=== PATIENT | male | born 1950 | race Caucasian/White ===

== ENCOUNTER → 2016-09-18 | Outpatient (CLI) | payer MEDICARE ==
[2013-12-12 12:15] VITALS: BP 154/87
[~2016-09-18] MED LIST: ASPI325T4 PO; ATOR20TA PO; DOXY-103 PO; LISI10TA2 PO; METO25TA9 PO; MULT-460 PO; NITR0.4T6 SL; OMEG-33 PO; OXYC5TAB PO; PROAIR HFA8.5 GM INH; UBID50TA PO
[2016-09-18 14:00] LABS: BASO # 0.1 x10^3/uL (0.0-0.2); BASO % 1 % (0-3); EOS % 2 % (0-3); LYMPH # 3.2 x10^3/uL (1.0-4.8); LYMPH % 32 % (24-48); MEAN CORPUSCULAR HEMOGLOBIN 32 pg (25-35); MEAN CORPUSCULAR HGB CONC 34 g/dL (31-37); MEAN CORPUSCULAR VOLUME 95 fL (79-100); MONO % 8 % (0-9); NEUT % 57 % (31-73); PLATELET COUNT 262 x10^3/uL (140-400); RED BLOOD COUNT 4.95 x10^6/uL (4.30-5.70); WHITE BLOOD COUNT 10.2 x10^3/uL (4.0-11.0)
[2016-09-18 14:19] LABS: CALCIUM 9.3 mg/dL (8.5-10.1); CREATININE 1.2 mg/dL (0.7-1.3); GFR 60.2; POTASSIUM 4.3 mmol/L (3.5-5.1)
[2016-09-19 06:21] LABS: PTH INTACT 59 pg/mL (15-65)
== END | disposition home or self-care (01) ==
LOC: LAB 13:39
PROVIDERS: ATTEND Internal Medicine Nephrology
DX: N18.3 Chronic kidney disease, stage 3 (moderate) (principal); N12 Tubulo-interstitial nephritis, not specified as acute or chronic; I10 Essential (primary) hypertension; N13.30 Unspecified hydronephrosis
CPT/HCPCS: 36415; 80069; 83970; 85027

== ENCOUNTER → 2017-02-27 | Outpatient (CLI) | payer MEDICARE ==
[2013-12-12 12:15] VITALS: BP 154/87
[~2017-02-27] MED LIST changes: -ASPI325T4 PO; +ASPI325T8 PO; -DOXY-103 PO; +DOXY100T10 PO; +NITR0.4T22 SL; -NITR0.4T6 SL
--- NOTE | 2017-02-27 11:01 | RAD ---
CT chest without IV contrast Indication: 66-year-old male for follow-up of lung nodule. Technique: CT chest without IV contrast with multi planar reformats. Comparison: Previous CT from 05/16/2016. Findings: Neck base is clear. No axillary, mediastinal or hilar adenopathy. Heart is normal in size. Coronary artery calcifications noted. No pericardial or pleural effusion. CABG changes noted. Lung nodules as follows: -Stable left lower lobe nodule measuring 8 mm (series 3 image 216). -Stable right lower lobe nodule measuring 5 mm (series 3 image 114). -Stable 2 mm nodule in the inferior aspect of the right upper lobe (series 3 image 142). -Stable triangular opacity measuring 3 mm in the right middle lobe (series 3 image 181). The noncontrast appearance of the visualized liver, spleen, pancreas, adrenals and kidneys is within normal limits. No radiopaque gallstones. Stable 2.6 x 6.2 cm right anterolateral lower chest wall intramuscular lipoma. Stable 1 cm superficial lesion within the right lateral chest wall likely sebaceous cyst. No suspicious bony lesion. Impression: Stable pulmonary nodules, the largest in the left lower lobe measuring 8 mm. Follow-up study in 6-12 months recommended. PQRS Compliance Statement: One or more of the following individualized dose reduction techniques were utilized for this examination: 1. Automated exposure control 2. Adjustment of the mA and/or kV according to patient size 3. Use of iterative reconstruction technique
== END | disposition home or self-care (01) ==
LOC: CT 09:55
PROVIDERS: ATTEND Internal Medicine Pulmonary Disease
DX: R91.8 Other nonspecific abnormal finding of lung field (principal); R91.1 Solitary pulmonary nodule
CPT/HCPCS: 71250

== ENCOUNTER → 2017-03-19 | Outpatient (CLI) | payer MEDICARE ==
[2013-12-12 12:15] VITALS: BP 154/87
[~2017-03-19] MED LIST changes: +METO-239 PO; -METO25TA9 PO; -OXYC5TAB PO; +OXYC5TAB95 PO
[2017-03-19 14:19] LABS: ALBUMIN 3.8 g/dL (3.4-5.0); CALCIUM 8.8 mg/dL (8.5-10.1); CREATININE 1.2 mg/dL (0.7-1.3); GFR 60.2; PHOSPHORUS 3.2 mg/dL (2.6-4.7); POTASSIUM 4.3 mmol/L (3.5-5.1)
== END | disposition home or self-care (01) ==
LOC: LAB 13:48
PROVIDERS: ATTEND Internal Medicine Nephrology
DX: I12.9 Hypertensive chronic kidney disease with stage 1 through stage 4 chronic kidney disease, or unspecified chronic kidney disease (principal); N18.2 Chronic kidney disease, stage 2 (mild); N12 Tubulo-interstitial nephritis, not specified as acute or chronic; Z68.29 Body mass index [BMI] 29.0-29.9, adult
CPT/HCPCS: 36415; 80069

== ENCOUNTER → 2017-06-11 | Outpatient (CLI) | payer MEDICARE ==
[2013-12-12 12:15] VITALS: BP 154/87
[~2017-06-11] MED LIST changes: +IOHEXOL 300 MG/ML 100ML VIAL. IV ONE
--- NOTE | 2017-06-11 14:49 | RAD ---
Examination: CT angiogram of the abdomen pelvis History: History of abdominal aortic aneurysm Comparison: 03/29/2016 Technique: Axial CT angiographic images of the abdomen pelvis were performed with IV contrast. Coronal and sagittal 3-D MIP reformats are performed. 3-D volumetric reformats of the abdomen that was performed. PQRS Compliance Statement: One or more of the following individualized dose reduction techniques were utilized for this examination: 1. Automated exposure control 2. Adjustment of the mA and/or kV according to patient size 3. Use of iterative reconstruction technique. Findings: There is a 6 mm nodule identified in the left lower lobe of the lung similar to prior exam. No evidence of free air identified in the abdomen. The visualized liver, spleen, adrenals grossly appears unremarkable , the gallbladder is mildly distended. The stomach is minimally distended. The visualized pancreas grossly appears unremarkable. The small bowel is nondilated. The appendix is normal. Feces and gas noted throughout the colon. Multiple colon diverticula identified. Urinary bladder is moderately distended. Moderate aortic atherosclerosis. Infrarenal abdominal aortic aneurysm is identified measuring 3.1 cm in AP dimension and 3.4 cm in transverse dimension. The visualized celiac artery, superior mesenteric artery, inferior mesenteric artery are patent. The bilateral renal arteries are patent. The bilateral kidneys enhance symmetrically. Mild prominent left extrarenal pelvis or a chronic low-grade UPJ obstruction similar to prior exam. Moderate atherosclerosis of the bilateral external and internal iliac arteries are identified. Urinary bladder is mildly distended. A lipoma is identified in the right chest wall similar to prior exam. Mild degenerative changes lumbar spine. Impression: Focal abdominal aortic aneurysm measuring 3.1 x 3.4 cm in the infrarenal abdominal aorta, similar to prior exam.
== END | disposition home or self-care (01) ==
LOC: CT 14:11
PROVIDERS: ATTEND Internal Medicine Cardiovascular Disease
DX: I71.4 Abdominal aortic aneurysm, without rupture (principal); R91.1 Solitary pulmonary nodule; K82.8 Other specified diseases of gallbladder; K31.89 Other diseases of stomach and duodenum; N32.89 Other specified disorders of bladder; I70.0 Atherosclerosis of aorta; D17.1 Benign lipomatous neoplasm of skin and subcutaneous tissue of trunk
CPT/HCPCS: 74174; Q9967

== ENCOUNTER → 2017-06-11 | Outpatient (CLI) | payer MEDICARE ==
[2013-12-12 12:15] VITALS: BP 154/87
[~2017-06-11] MED LIST changes: -IOHEXOL 300 MG/ML 100ML VIAL. IV ONE
[2017-06-11 13:20] LABS: BASO # 0.1 x10^3/uL (0.0-0.2); BASO % 1 % (0-3); EOS % 4 % (0-3); HEMATOCRIT 46.5 % (39.0-53.0); HEMOGLOBIN 15.8 g/dL (13.0-17.5); LYMPH % 34 % (24-48); MEAN CORPUSCULAR HEMOGLOBIN 33 pg (25-35); MEAN CORPUSCULAR HGB CONC 34 g/dL (31-37); MEAN CORPUSCULAR VOLUME 97 fL (79-100); MONO % 9 % (0-9); NEUT % 53 % (31-73); PLATELET COUNT 300 x10^3/uL (140-400); RED BLOOD COUNT 4.81 x10^6/uL (4.30-5.70); RED CELL DISTRIBUTION WIDTH 14.1 % (11.5-14.5); WHITE BLOOD COUNT 8.8 x10^3/uL (4.0-11.0)
[2017-06-11 13:32] LABS: ALBUMIN 4.1 g/dL (3.4-5.0); ALBUMIN/GLOBULIN RATIO 1.1 (1.0-1.7); CALCIUM 9.2 mg/dL (8.5-10.1); CREATININE 1.2 mg/dL (0.7-1.3); TOTAL BILIRUBIN 0.5 mg/dL (0.2-1.0); TOTAL PROTEIN 7.9 g/dL (6.4-8.2)
[2017-06-11 13:34] LABS: CHOLESTEROL/HDL RATIO 2.6
== END | disposition home or self-care (01) ==
LOC: LAB 12:42
PROVIDERS: ATTEND Family Medicine
DX: Z12.5 Encounter for screening for malignant neoplasm of prostate (principal); I10 Essential (primary) hypertension; E78.5 Hyperlipidemia, unspecified; I71.4 Abdominal aortic aneurysm, without rupture
CPT/HCPCS: 36415; 80053; 80061; 85025; G0103

== ENCOUNTER → 2018-02-15 | Outpatient (CLI) | payer MEDICARE | END | disposition home or self-care (01) | LOC: CT 10:20 | DX: I25.10 Atherosclerotic heart disease of native coronary artery without angina pectoris (principal); I25.2 Old myocardial infarction; I13.0 Hypertensive heart and chronic kidney disease with heart failure and stage 1 through stage 4 chronic kidney disease, or unspecified chronic kidney disease; I50.9 Heart failure, unspecified; N18.3 Chronic kidney disease, stage 3 (moderate); R91.8 Other nonspecific abnormal finding of lung field; Z68.29 Body mass index [BMI] 29.0-29.9, adult | CPT/HCPCS: 71250 ==

== ENCOUNTER → 2018-07-18 | Outpatient (CLI) | payer MEDICARE ==
[2013-12-12 12:15] VITALS: BP 154/87
[~2018-07-18] MED LIST changes: +ALBU2.5V8 INH; +OXYC5TAB4 PO; -OXYC5TAB95 PO; -PROAIR HFA8.5 GM INH
[2018-07-18 13:58] LABS: ALBUMIN 3.6 g/dL (3.4-5.0); CALCIUM 9.3 mg/dL (8.5-10.1); CREATININE 1.2 mg/dL (0.7-1.3); GFR 59.9; PHOSPHORUS 3.6 mg/dL (2.6-4.7); POTASSIUM 4.5 mmol/L (3.5-5.1)
== END | disposition home or self-care (01) ==
LOC: LAB 13:09
PROVIDERS: ATTEND Internal Medicine Nephrology
DX: I12.9 Hypertensive chronic kidney disease with stage 1 through stage 4 chronic kidney disease, or unspecified chronic kidney disease (principal); N18.2 Chronic kidney disease, stage 2 (mild); N12 Tubulo-interstitial nephritis, not specified as acute or chronic; Z68.29 Body mass index [BMI] 29.0-29.9, adult
CPT/HCPCS: 36415; 80069

== ENCOUNTER 2019-01-31 20:40 | Emergency (ER) | payer MEDICARE ==
[~2019-01-31] VITALS: Ht 170.2 cm; Wt 77.1 kg
[2019-01-31 20:45] VITALS: BP 138/90
--- NOTE | 2019-01-31 20:59 | PHYS DOC ---
Past Medical History Past Medical History: Other Additional Past Medical Histor: DOESN[place]T GO [place] [facility] [place] Past Surgical History: No Surgical History Alcohol Use: Heavy Drug Use: None Adult General Chief Complaint Chief Complaint: MECHANICAL FALL HPI HPI Patient is a 68 year old male who presents after he fell this happened prior to arrival. The patient denies loss of consciousness, patient states he tripped on the carpet and hit his head on the doorknob. The patient is a laceration to the occipital portion of her head. States he takes 6-325 mg aspirin every day for pain control. States he has had several cocktails this evening prior to falling. Review of Systems Review of Systems Constitutional: Denies fever or chills [] Eyes: Denies change in visual acuity, redness, or eye pain [] HENT: Denies nasal congestion or sore throat [] Respiratory: Denies cough or shortness of breath [] Cardiovascular: No additional information not addressed in HPI [] GI: Denies abdominal pain, nausea, vomiting, bloody stools or diarrhea [] : Denies dysuria or hematuria [] Musculoskeletal: Denies back pain or joint pain [] Integument: Reports laceration to scalp. Neurologic: Reports headache, denies focal weakness or sensory changes [] Endocrine: Denies polyuria or polydipsia [] Complete systems were reviewed and found to be within normal limits, except as documented in this note. Current Medications Current Medications Current Medications Medications (Trade) Dose Ordered Sig/[facility] Start Time Stop Time Status Last Admin Dose Admin Lidocaine HCl (Lidocaine 1% 20ml Vial) 20 ml 1X ONCE 01/31/19 21:00 01/31/19 21:01 DC 01/31/19 21:26 20 ML Allergies Allergies Allergies Coded Allergies Type Severity Reaction Last Updated Verified Penicillins Allergy Severe Swelling 11/10/13 Yes Sulfa (Sulfonamide Antibiotics) Allergy Severe THROAT SWELLING 11/10/13 Yes Physical Exam Physical Exam Constitutional: Well developed, well nourished, no acute distress, non-toxic appearance. [] HENT: Normocephalic, atraumatic, bilateral external ears normal, oropharynx moist, no oral exudates, nose normal. [] Eyes: PERRLA, EOMI, conjunctiva normal, no discharge. [] Neck: Normal range of motion, no tenderness, supple, no stridor. [] Cardiovascular:Heart rate regular rhythm, no murmur [] Lungs & Thorax: Bilateral breath sounds clear to auscultation [] Abdomen: Bowel sounds normal, soft, no tenderness, no masses, no pulsatile masses. [] Skin: Warm, dry, no erythema, laceration to occipital portion of head 2.5 cm. Back: No tenderness, no CVA tenderness. [] Extremities: No tenderness, no cyanosis, no clubbing, ROM intact, no edema. [] Neurologic: Alert and oriented X 3, normal motor function, normal sensory function, no focal deficits noted. [] Psychologic: Affect normal, judgement normal, mood normal. [] Current Patient Data Vital Signs Vital Signs Date Time Temp Pulse Resp B/P (MAP) Pulse Ox O2 Delivery O2 Flow Rate FiO2 01/31/19 20:45 98.6 60 20 138/90 (106) 95 Room Air 98.6 EKG EKG [] Radiology/Procedures Radiology/Procedures Indication: Head laceration Procedure: The patient was placed in the appropriate position and anesthesia around the lidocaine 1%. The area was then debrided with 120 mL of saline. The laceration was closed with 6 will. The wound area was then dressed with wound covering. Total repaired wound length: 3 cm. The patient tolerated the procedure [TOLERATED]. Complications: None []PATIENT: SAMANTHA GORMAN LACCOUNT: [id number]#: [id number] : 1950 LOCATION: ER AGE: 68 SEX: M EXAM STATUS: REG ER ORD. PHYSICIAN: FRITZ MUIR APRN REASON: fall, POSTERIOR HEAD BLEEDING. PROCEDURE: CT HEAD AND CERVICAL SPINE WO INDICATION: Trauma COMPARISON: None. TECHNIQUE: Axial CT images obtained through the head and cervical spine. One or more of the following individualized dose reduction techniques were utilized for this examination: 1. Automated exposure control; 2. Adjustment of the mA and/or kV according to patient size; 3. Use of iterative reconstruction technique. FINDINGS: Head: No midline shift. Suprasellar cistern is not effaced. Scattered foci of low density of the white matter. Right-sided scalp cephalohematoma, small. No definite acute intracranial hemorrhage. Small amount of fluid in the right maxillary sinus which is small in size. Cervical spine: Degenerative changes throughout the cervical spine with osteophyte formation at the vertebral body endplates as well as uncovertebral and facet hypertrophy with multilevel central canal and neural foraminal stenosis. For example there is a large disc osteophyte complex at C4-5 with resultant narrowing of the central canal which appears severe in nature. Grade 1 anterolisthesis of C7 on T1. No definite acute fracture. Cystic changes at lung apices which can be seen with emphysema. IMPRESSION: 1. No acute intracranial hemorrhage. 2. Scattered low density of white matter. Nonspecific but can be seen with chronic small vessel ischemic disease. 3. Severe degenerative changes of the cervical spine with multilevel central canal neural foraminal stenosis without a definite acute fracture. Electronically signed by: Rahat Tucker MD (01/31/2019 9:53 PM) [facility] DICTATED and SIGNED BY: RAHAT TUCKER MD DATE: 01/31/192152 Course & Med Decision Making Course & Med Decision Making Pertinent Labs and Imaging studies reviewed. (See chart for details) Will get CT of head and neck, patient is already in C-collar. Will also staple laceration. Cleared c-collar as patient was having no pain with head movement and no c-spine tenderness. Patient is clinically sober, and can walk steadily and talk (23:26). Stapled laceration. Dragon Disclaimer Dragon Disclaimer This electronic medical record was generated, in whole or in part, using a voice recognition dictation system. Departure Departure Impression: Primary Impression: Fall Additional Impression: Laceration Disposition: 01 HOME, SELF-CARE Condition: STABLE Referrals: JUAN R MOORE MD (PCP) Patient Instructions: Laceration Care, Adult Additional Instructions: Thank you for visiting [facility]. We appreciate you trusting us with your care. If any additional problems come up don't hesitate to return to visit us. Please follow up with your primary care provider so they can plan additional care if needed and know about the problem that you had. If symptoms worsen come back to the Emergency Department. Any concerning symptoms that start such as chest pain, shortness of air, weakness or numbness on one side of the body, running high fevers or any other concerning symptoms return to the ER. Please have will removed in 5-[address] Neosporin on wound. Keep clean. Problem Qualifiers Primary Impression: Fall Encounter type: initial encounter Qualified Codes: W19.XXXA - Unspecified fall, initial encounter FRITZ MUIR APRN Jan 31, 2019 20:59
[2019-01-31] MEDS ORDERED: LIDOCAINE 1% Multi-Dose 20 ML VIAL. INJ ONE (21:00)
--- NOTE | 2019-01-31 21:56 | RAD ---
INDICATION: Trauma COMPARISON: None. TECHNIQUE: Axial CT images obtained through the head and cervical spine. One or more of the following individualized dose reduction techniques were utilized for this examination: 1. Automated exposure control; 2. Adjustment of the mA and/or kV according to patient size; 3. Use of iterative reconstruction technique. FINDINGS: Head: No midline shift. Suprasellar cistern is not effaced. Scattered foci of low density of the white matter. Right-sided scalp cephalohematoma, small. No definite acute intracranial hemorrhage. Small amount of fluid in the right maxillary sinus which is small in size. Cervical spine: Degenerative changes throughout the cervical spine with osteophyte formation at the vertebral body endplates as well as uncovertebral and facet hypertrophy with multilevel central canal and neural foraminal stenosis. For example there is a large disc osteophyte complex at C4-5 with resultant narrowing of the central canal which appears severe in nature. Grade 1 anterolisthesis of C7 on T1. No definite acute fracture. Cystic changes at lung apices which can be seen with emphysema. IMPRESSION: 1. No acute intracranial hemorrhage. 2. Scattered low density of white matter. Nonspecific but can be seen with chronic small vessel ischemic disease. 3. Severe degenerative changes of the cervical spine with multilevel central canal neural foraminal stenosis without a definite acute fracture. Electronically signed by: Bebeto Valdez MD (01/31/2019 9:53 PM) [facility]
[2019-01-31] MEDS ORDERED: NEOMY/BACITR/POLYMYXIN OINT PACKET. TP ONE ×2 (23:35→23:45)
== END 2019-01-31 23:35 | disposition home or self-care (01) ==
LOC: ER 20:40
DX: S01.01XA Laceration without foreign body of scalp, initial encounter (principal); R51 Headache; M54.2 Cervicalgia; Z88.0 Allergy status to penicillin; Z88.2 Allergy status to sulfonamides; W01.118A Fall on same level from slipping, tripping and stumbling with subsequent striking against other sharp object, initial encounter; Y93.89 Activity, other specified; Y92.89 Other specified places as the place of occurrence of the external cause; Y99.8 Other external cause status
CPT/HCPCS: 12002; 70450; 72125; 99284-25

== ENCOUNTER → 2019-04-04 | Outpatient (CLI) | payer MEDICARE ==
[2013-12-12 12:15] VITALS: BP 154/87
[~2019-04-04] MED LIST changes: -DOXY100T10 PO; +DOXY100T27 PO
--- NOTE | 2019-04-04 15:34 | KCIC ---
EXAM: Right great toe, 3 views. HISTORY: Fall. COMPARISON: None. FINDINGS: 3 views of the right great toe are obtained. There is a nondisplaced intra-articular fracture of the mid and distal first proximal phalanx. There is minimal spurring involving the base of the first proximal phalanx. IMPRESSION: Nondisplaced intra-articular fracture of the mid to distal right first proximal phalanx. Electronically signed by: Jackelyn Heredia MD (04/04/2019 3:32 PM) [place] [id number]
--- NOTE | 2019-04-04 16:49 | KCIC ---
EXAM: Chest, 2 views. HISTORY: Dyspnea on exertion. Smoking history. COMPARISON: 02/15/2018 FINDINGS: 2 views of the chest are obtained. There is no infiltrate, pleural effusion or pneumothorax. The heart is normal in size. There is evidence of coronary artery bypass grafting. There is a small nodular opacity overlying the lateral left lower lobe, likely corresponding with a nodule in this location demonstrated on the prior CT dated 02/15/2018. IMPRESSION: 1. No acute pulmonary finding. 2. Subcentimeter left lower lobe pulmonary nodule, not appreciably changed compared to the prior CT when allowing for differences in imaging modality. Electronically signed by: Jackelyn Heredia MD (04/04/2019 4:46 PM) [id number]
== END | disposition home or self-care (01) ==
LOC: KCIC 09:55
PROVIDERS: ATTEND Family Medicine
DX: S92.414A Nondisplaced fracture of proximal phalanx of right great toe, initial encounter for closed fracture (principal); M79.674 Pain in right toe(s); R06.00 Dyspnea, unspecified; Z95.1 Presence of aortocoronary bypass graft; R91.1 Solitary pulmonary nodule; Z87.891 Personal history of nicotine dependence; W18.31XA Fall on same level due to stepping on an object, initial encounter; Y93.89 Activity, other specified; Y92.89 Other specified places as the place of occurrence of the external cause; Y99.8 Other external cause status
CPT/HCPCS: 71046; 73660

== ENCOUNTER → 2019-08-20 | Outpatient (CLI) | payer MEDICARE ==
[2013-12-12 12:15] VITALS: BP 154/87
--- NOTE | 2019-08-20 14:15 | KCIC ---
SCAN OF ABDOMINAL AORTA History: Abdominal aortic aneurysm Comparison: June 11, 2017 CT exam abdomen pelvis Findings: Multiple sonographic images of the abdomen are submitted. There is diffuse plaque of the abdominal aorta and iliac arteries. Maximal caliber of the proximal abdominal aorta was 3 cm and 2.9 cm at the mid segment. Distal abdominal aorta is dilated in maximal dimension up to 3.9 cm, somewhat greater as previous maximal dimension about 3.5 cc. Maximal distal abdominal aortic peak systolic velocity 60 cm/s. Impression: 1. There is distal abdominal aortic aneurysm up to 3.9 cm maximal axial dimension, somewhat increased compared with 2017 CTA exam. There is diffuse scattered plaque. Electronically signed by: Paul Stout MD (08/20/2019 2:12 PM) [id number]
== END | disposition home or self-care (01) ==
LOC: KCIC US 09:34
PROVIDERS: ATTEND Family Medicine
DX: I71.4 Abdominal aortic aneurysm, without rupture (principal); I70.0 Atherosclerosis of aorta
CPT/HCPCS: 76770

== ENCOUNTER → 2020-03-25 | Outpatient (CLI) | payer MEDICARE ==
[2013-12-12 12:15] VITALS: BP 154/87
--- NOTE | 2020-03-25 10:18 | RAD ---
Examination: Complete abdominal ultrasound INDICATION: Vertigo: Transabdominal pain. COMPARISON: CT angiogram abdomen and pelvis of 06/11/2017. TECHNIQUE: Grayscale and, color and spectral Doppler imaging of the abdomen was performed. FINDINGS: Liver measures 14.7 cm in length and is unremarkable with no masses or nodular contour. Echogenicity is unremarkable. The gallbladder is sonographically unremarkable with wall thickness of 1.7 mm No stones, sludge or masses. There is no intra or extrahepatic biliary dilation with the common bile duct measuring 2 mm at the josiah hepatis. Spleen is poorly visualized. It measures approximately 8 cm. Right kidney measures 9.9 x 5.1 x 4.5 cm and is unremarkable. Left kidney measures 9.3 x 4.6 x 5.4 cm and is also unremarkable. No hydronephrosis, shadowing stones or perinephric fluid identified in either kidney. Patent, normal directional flow in the main portal vein. Visualized IVC is unremarkable. Abdominal aorta is atherosclerotic calcifications and is ectatic to 3.8 cm. This is evaluated in greater detail on same-day abdominal aortic ultrasound. Please see that report for additional details. IMPRESSION: No specific cause for right upper quadrant abdominal pain is identified. In particular, the liver and gallbladder are unremarkable and there is no biliary dilation. Examination: Abdominal aorta ultrasound INDICATION: Abdominal pain, abdominal aortic aneurysm COMPARISON: 06/11/2017 CT abdomen with IV contrast. TECHNIQUE: Grayscale, color and spectral Doppler imaging of the abdominal aorta and common iliac arteries was performed FINDINGS: Proximal abdominal aorta is obscured by bowel gas. Mid abdominal aorta shows atherosclerotic calcifications along its length. Measures 2.3 cm AP diameter in the longitudinal projection. Peak systolic velocity is 70 cm/s. Resistive index of 0.8. Distal abdominal aorta is dilated to 3.4 cm AP diameter, 3.8 cm transverse diameter. Peak systolic velocity of 53 cm/s. Resistive index of 0.71. Calcified plaque is present in the wall. No evidence of dissection identified. Right common iliac artery measures 1.0 cm transverse diameter, 1.1 cm AP diameter. It shows a peak systolic velocity of 141 cm/s, resistive index of 0.86. Left common iliac artery measures 1.0 x 0.9 cm AP by transverse. It shows a peak systolic velocity of 163 cm/s. Resistive index of 0.87. IMPRESSION: Infrarenal abdominal aortic aneurysm measuring 3.4 x 3.8 cm (AP by transverse) showing no evidence of leak , rupture or dissection. Proximal abdominal aorta obscured by bowel gas. Electronically signed by: Annabelle Nicole MD (03/25/2020 10:15 AM) [id number]
== END | disposition home or self-care (01) ==
LOC: US 06:22
PROVIDERS: ATTEND Nurse Practitioner Gerontology
DX: I71.4 Abdominal aortic aneurysm, without rupture (principal); I70.0 Atherosclerosis of aorta
CPT/HCPCS: 76700; 76770

== ENCOUNTER → 2020-04-05 | Outpatient (CLI) | payer MEDICARE ==
[2013-12-12 12:15] VITALS: BP 154/87
[~2020-04-05] MED LIST changes: +CONTRAST GIVEN. MC PRN; +IOHEXOL 240 MG/ML 50ML VIAL. PO ONE; +IOHEXOL 300 MG/ML 100ML VIAL. IV ONE
--- NOTE | 2020-04-05 15:07 | KCIC ---
CT abdomen and pelvis with contrast HISTORY: Abdominal pain 1 month TECHNIQUE: Computed tomographic imaging of the abdomen and pelvis was performed following the uneventful intravenous demonstration of 100 cc Omnipaque 300. COMPARISON: June 11, 2017 PQRS Compliance Statement: One or more of the following individualized dose reduction techniques were utilized for this examination: 1. Automated exposure control 2. Adjustment of the mA and/or kV according to patient size 3. Use of iterative reconstruction technique FINDINGS: Bases are clear. Liver unremarkable Gallbladder negative Adrenal glands negative Kidneys negative Spleen negative Fatty infiltration of the pancreas. Marked stool retention is present in the colon. Normal-appearing appendix. Abdominal aortic aneurysm measuring 37 x 36 mm. Extensive atherosclerotic calcifications are present. Diverticulosis without acute diverticulitis evident. L3-4 bulging disc with moderate central stenosis. Seminal vesicles and prostate unremarkable Bladder unremarkable IMPRESSION: Marked stool retention, diverticulosis no acute diverticulitis L4-5 disc bulge with moderate central stenosis Electronically signed by: Isidro Bustillo MD (04/05/2020 3:04 PM) [id number]
== END | disposition home or self-care (01) ==
LOC: KCIC CT 08:59
PROVIDERS: ATTEND Family Medicine
DX: K57.30 Diverticulosis of large intestine without perforation or abscess without bleeding (principal); R63.4 Abnormal weight loss; K86.89 Other specified diseases of pancreas; M48.061 Spinal stenosis, lumbar region without neurogenic claudication
CPT/HCPCS: 74177; Q9966; Q9967

== ENCOUNTER 2020-07-01 09:55 | Emergency (ER) | payer MEDICARE ==
[~2020-07-01] VITALS: Ht 172.7 cm; Wt 73.6 kg
[~2020-07-01 09:55] MED LIST changes: -CONTRAST GIVEN. MC PRN; -IOHEXOL 240 MG/ML 50ML VIAL. PO ONE; -IOHEXOL 300 MG/ML 100ML VIAL. IV ONE
--- NOTE | 2020-07-01 11:04 | RAD ---
XR CHEST 2V History: Reason: FALL, LEFT-SIDED RIB PAIN LOWER RIB PAIN Comparison: Two-view chest April 04, 2019. Findings: There are CABG changes. Cardiac size is normal. Pulmonary vasculature is normal. The lungs are clear. No pleural effusion or pneumothorax is seen. There is acute traumatic minimally displaced left lateral ninth rib fracture. No other adjacent rib f ractures are definitely seen but nondisplaced or subtle rib fractures could be obscured due to bony o verlap. IMPRESSION: 1. No acute cardiopulmonary process. 2. Acute traumatic minimally displaced left lateral ninth rib fracture. Electronically signed by: Jerry Hubbard MD (07/01/2020 11:01 AM) [id number]
[2020-07-01 11:30] VITALS: BP 153/65
[2020-07-01] MEDS ORDERED: LIDOCAINE (700MG/PATCH) PATCH. TD ONE (11:30)
[2020-07-01] MEDS ORDERED: HYDR-3164 PO (11:42)
--- NOTE | 2020-07-01 11:43 | ED.ADGEN ---
Past Medical History Past Medical History: High Cholesterol, Hypertension, Other Additional Past Medical Histor: AAA Past Surgical History: Coronary Bypass Surgery Smoking Status: Current Every Day Smoker Alcohol Use: Heavy Additional Information: '4X A WEEK' Drug Use: None General Adult EDM: Chief Complaint: MECHANICAL FALL HPI: HPI: Patient is a 70 year old male coming in with left-sided rib pain after a fall yesterday. Says he had fallen and caught himself on his bed frame. Takes tramadol. Chronic pain but has taken 2 today without improvement. Denies any recent illness, fevers, cough, chest pain, vomiting or diarrhea. Review of Systems: Review of Systems: Negative other than HPI Current Medications: Current Medications Medications (Trade) Dose Ordered Sig/[facility]ana Start Time Stop Time Status Last Admin Dose Admin Lidocaine (Lidoderm) 1 patch 1X ONCE 07/01/20 11:30 07/01/20 11:31 DC 07/01/20 11:30 1 PATCH Allergies: Allergies: Allergies Coded Allergies Type Severity Reaction Last Updated Verified Penicillins Allergy Severe Swelling 11/10/13 Yes Sulfa (Sulfonamide Antibiotics) Allergy Severe THROAT SWELLING 11/10/13 Yes Physical Exam: PE: Constitutional: Well developed, well nourished, no acute distress, non-toxic appearance. [] HENT: Normocephalic, atraumatic, bilateral external ears normal, oropharynx moist, no oral exudates, nose normal. [] Eyes: PERRLA, EOMI, conjunctiva normal, no discharge. [] Neck: Normal range of motion, no tenderness, supple, no stridor. [] Cardiovascular:Heart rate regular rhythm, no murmur [] Lungs & Thorax: Bilateral breath sounds clear to auscultation [] tenderness over left ribs Abdomen: Bowel sounds normal, soft, no tenderness, no masses, no pulsatile masses. [] Skin: Warm, dry, no erythema, no rash. [] Back: No tenderness, no CVA tenderness. [] Extremities: No tenderness, no cyanosis, no clubbing, ROM intact, no edema. [] Neurologic: Alert and oriented X 3, normal motor function, normal sensory function, no focal deficits noted. [] Psychologic: Affect normal, judgement normal, mood normal. [] Current Patient Data: Vital Signs: Vital Signs Date Time Temp Pulse Resp B/P (MAP) Pulse Ox O2 Delivery O2 Flow Rate FiO2 07/01/20 10:00 97.8 54 22 136/80 (98) 99 Room Air 97.8 EKG: EKG: [] Heart Score: Risk Factors: Risk Factors: DM, Current or recent (<one month) smoker, HTN, HLP, family history of CAD, obesity. Risk Scores: Score 0 - 3: 2.5% MACE over next 6 weeks - Discharge Home Score 4 - 6: 20.3% MACE over next 6 weeks - Admit for Clinical Observation Score 7 - 10: 72.7% MACE over next 6 weeks - Early Invasive Strategies Radiology/Procedures: Radiology/Procedures: XR CHEST 2V History: Reason: FALL, LEFT-SIDED RIB PAIN LOWER RIB PAIN Comparison: Two-view chest April 04, 2019. Findings: There are CABG changes. Cardiac size is normal. Pulmonary vasculature is normal. The lungs are clear. No pleural effusion or pneumothorax is seen. There is acute traumatic minimally displaced left lateral ninth rib fracture. No other adjacent rib fractures are definitely seen but nondisplaced or subtle rib fractures could be obscured due to bony overlap. IMPRESSION: 1. No acute cardiopulmonary process. 2. Acute traumatic minimally displaced left lateral ninth rib fracture. [] Course & Med Decision Making: Course & Med Decision Making Pertinent Labs and Imaging studies reviewed. (See chart for details) [] Dragon Disclaimer: Mirian Disclaimer: This electronic medical record was generated, in whole or in part, using a voice recognition dictation system. Departure Departure Impression: Primary Impression: Fall Additional Impression: Left rib fracture Disposition: 01 DC HOME SELF CARE/HOMELESS Condition: STABLE Referrals: JUAN R MOORE MD (PCP) Patient Instructions: Rib Fracture Additional Instructions: Use incentive spirometer frequently throughout the day while you are having pain. May also use ibuprofen for pain with prescribed pain medications. Topical lidocaine patches available at most pharmacies. Scripts Hydrocodone/Apap 5-325 (NORCO 5-325 TABLET) 1 Each Tablet 1-2 TAB PO Q4-6HRS for pain for 7 Days, #20 TAB Prov: KRIS BLACK MD 07/01/20 Problem Qualifiers KRIS BLACK MD Jul 01, 2020 11:43
== END 2020-07-01 12:04 | disposition home or self-care (01) ==
LOC: ER 09:55
DX: S22.32XA Fracture of one rib, left side, initial encounter for closed fracture (principal); E78.00 Pure hypercholesterolemia, unspecified; I10 Essential (primary) hypertension; F17.200 Nicotine dependence, unspecified, uncomplicated; G89.29 Other chronic pain; F10.10 Alcohol abuse, uncomplicated; Z88.0 Allergy status to penicillin; Z88.2 Allergy status to sulfonamides; Z98.890 Other specified postprocedural states; W18.39XA Other fall on same level, initial encounter; Y93.89 Activity, other specified; Y92.89 Other specified places as the place of occurrence of the external cause; Y99.8 Other external cause status
CPT/HCPCS: 71046; 99284

== ENCOUNTER → 2021-08-17 | Outpatient (CLI) | payer MEDICARE ==
[~2021-08-17] MED LIST changes: +HYDR-3164 PO; +LISI10TA16 PO; -LISI10TA2 PO
--- NOTE | 2021-08-17 10:40 | KCIC ---
EXAM: ULTRASOUND ABDOMINAL AORTA. HISTORY: Abdominal aortic aneurysm. Cigarette smoking. Hypertension. COMPARISON: CT dated 04/05/2020.. FINDINGS: Sonographic evaluation of the abdominal aorta and common iliac arteries was performed. Proximally, the abdominal aorta measures 2.7 cm. In its midportion, 3.0 cm. Distally, 3.8 cm. There i s calcified atherosclerotic plaque involving the aorta. The right common iliac artery measures 1.3 cm. The left measures 1.0 cm. There is no evidence of stenosis on Doppler. IMPRESSION: 1. Distal abdominal aortic aneurysm measuring 3.8 cm. This appears to be minimally increased compared to the prior CT, allowing for differences in imaging modality. 2. Aortic atherosclerosis. Abdominal aortic aneurysm measuring 3.5-3.9 cm as above. Recommend follow-up ultrasound or CTA in 2 y ears per ACR and SVS recommendations. Electronically signed by: Jackelyn Heredia MD (08/17/2021 10:38 AM) [id number]
== END ==
LOC: KCIC US 08:55
PROVIDERS: ATTEND Family Medicine
DX: I71.4 Abdominal aortic aneurysm, without rupture (principal); I70.0 Atherosclerosis of aorta
CPT/HCPCS: 76770